=== PATIENT | male | born 1990 | race Caucasian/White ===

== ENCOUNTER 2017-05-03 15:48 | Emergency (ER) | payer OTHER ==
[2017-05-03 16:21] VITALS: RESP 18; O2SAT 100
[2017-05-03] MEDS ORDERED: DiphenhydrAMINE 50 mg/ml Inj IVP STA (16:59)
[2017-05-03] MEDS ORDERED: Sodium Chloride 0.9% 1,000 ML IV ONE (17:00)
--- NOTE | 2017-05-03 17:02 | C.PDOC ---
History Of Present Illness Patient reports 6 day history of fever which is associated with bodyaches, headache, cough, and sore throat. Patient reports that headache has gradually worsened and is associated with photophobia and facial pressure. Denies neck pain/stiffness, nausea, vomiting, diarrhea, rash, travel. Time Seen by Provider: 05/03/17 16:25 Chief Complaint (Nursing): Flu-like Symptoms Past Medical History Vital Signs: Last Vital Signs Temp 98 F 05/03/17 19:16 Pulse 57 L 05/03/17 19:16 Resp 18 05/03/17 19:16 BP 111/57 L 05/03/17 19:16 Pulse Ox 100 05/05/17 18:11 - Medical History PMH: Asthma Family History: States: Unknown Family Hx - Social History Hx Tobacco Use: Yes Hx Alcohol Use: No Hx Substance Use: No - Immunization History Hx Tetanus Toxoid Vaccination: No Hx Influenza Vaccination: Yes Hx Pneumococcal Vaccination: No Physical Exam - Physical Exam Appears: Non-toxic, No Acute Distress Skin: Normal Color, Warm, No Rash Head: Atraumatic, Normacephalic Eye(s): bilateral: Normal Inspection Ear(s): Bilateral: Normal Oral Mucosa: Moist Throat: Erythema (mild), No Exudate Neck: Normal ROM, Supple Chest: Symmetrical Cardiovascular: Rhythm Regular, No Friction Rub, No Murmur Respiratory: Normal Breath Sounds, No Rales, No Rhonchi, No Wheezing Gastrointestinal/Abdominal: Normal Exam, Soft, No Tenderness Back: Normal Inspection, No CVA Tenderness Extremity: Normal ROM, No Swelling Neurological/Psych: Oriented x3, Normal Speech, Normal Cranial Nerves, Normal Motor Gait: Steady ED Course And Treatment - Laboratory Results Result Diagrams: 05/03/17 17:33 05/03/17 17:33 O2 Sat by Pulse Oximetry: 100 (on RA) Pulse Ox Interpretation: Normal Disposition - Disposition Referrals: [facility] [Outside] Disposition: HOME/ ROUTINE Disposition Time: 19:06 Condition: GOOD Additional Instructions: Follow up with the medical doctor with 1-2 days. return if worsened. Prescriptions: Fluticasone Nasal [Flonase] 1 spr NS DAILY #1 spr Loratadine [Claritin] 10 mg PO DAILY #10 tab Metoclopramide [Reglan] 1 tab PO TID PRN #25 tab PRN Reason: Nausea/Vomiting Instructions: Migraine Headache (DC) Forms: [employer] ([place]) - Clinical Impression Clinical Impression: Migraine, Sinusitis
[2017-05-03] MEDS ORDERED: Sodium Chloride 0.9% 1,000 ML ONE (17:24)
[2017-05-03 17:44] LABS: BASO % 0.3 % (0.0-2.0); EOS # 0.4 K/uL (0.0-0.7); EOS % 6.4 % (0.0-4.0); LYMPH # 2.9 K/uL (1.0-4.3); MEAN CELL VOLUME 85.6 fL (80.0-94.0); MEAN CORPUSCULAR HEMOGLOBIN 30.1 pg (27.0-31.0); MEAN CORPUSCULAR HGB CONC 35.2 g/dL (33.0-37.0); MEAN PLATELET VOLUME 8.2 fL (7.2-11.7); MONO # 0.5 K/uL (0.0-0.8); MONO % 8.7 % (0.0-10.0); NEUT # 1.8 K/uL (1.8-7.0); NEUT % 32.6 % (50.0-75.0); NRBC % 0.1 % (0.0-2.0); RBC 4.99 Mil/uL (4.40-5.90); RED CELL DISTRIBUTION WIDTH 12.8 % (11.5-14.5); WHITE BLOOD COUNT 5.6 K/uL (4.8-10.8)
[2017-05-03 17:50] LABS: ALB/GLOB RATIO 1.2 (1.0-2.1); ALBUMIN 3.9 g/dL (3.5-5.0); ALT/SGPT 75 U/L (21-72); AST/SGOT 58 U/L (17-59); BLOOD UREA NITROGEN 7 mg/dL (9-20); GFR AFRICAN-AMERICAN > 60; GFR NON-AFRICAN AMERICAN > 60
[2017-05-03] MEDS ORDERED: DiphenhydrAMINE 50 mg/ml Inj ONE (18:11)
[2017-05-03 19:17] VITALS: BP 111/57; PULSE 57; TEMP 98
--- NOTE | 2017-05-04 08:37 | RAD ---
Chest x-ray two views History: Cough and fever. Comparison: None available. Findings: No focal infiltrate or effusion. Heart size within normal limits. Impression: No focal infiltrate or effusion.
== END 2017-05-03 19:16 | disposition home or self-care (01) ==
LOC: C.ER 15:48
DX: J32.9 Chronic sinusitis, unspecified (principal); G43.909 Migraine, unspecified, not intractable, without status migrainosus; Z72.0 Tobacco use
CPT/HCPCS: 71046; 80053; 85025; 96361; 96374; 96375; 99284; J1200; J1885; J2765; J7040

== ENCOUNTER 2018-03-25 10:49 | Outpatient (CLI) | payer OTHER | END 2018-03-25 10:50 | disposition home or self-care (01) | LOC: C.RADIC 10:49 | DX: J32.0 Chronic maxillary sinusitis (principal) ==

== ENCOUNTER 2018-04-13 06:41 | Day surgery (SDC) | payer OTHER ==
[2018-03-24 12:54] VITALS: BMI 34.8
[2018-04-13] MEDS ORDERED: Dextrose 5%/0.45% NS 1,000 ML IV SCH (08:15)
[2018-04-13] MEDS ORDERED: Acetaminophen-Codeine 300/30 mg Tab PO PRN (08:15)
[2018-04-13] MEDS ORDERED: EPINEPHrine 1:1000 Nasal Sol(30mL) ONE (08:21)
[2018-04-13] MEDS ORDERED: ceFAZolin 1 gm in NS 2 GM/200 ML BAG IVPB ONE (08:21)
[2018-04-13] MEDS ORDERED: Rocuronium 10 mg/ml (5 ml) ONE (08:40)
[2018-04-13] MEDS ORDERED: Succinylcholine Chloride 20 mg/ml Syr (5 ml) IV ONE (08:40)
[2018-04-13] MEDS ORDERED: Propofol 10 mg/ml Inj (20 ML) ONE ×3 (08:40→10:35)
[2018-04-13] MEDS: Lidocaine/Epinephrine 1% 1:100000 10 ML IJ ONE ×2 (09:05→09:34)
[2018-04-13] MEDS ORDERED: Neostigmine 1:1000 (1 mg/ml) Inj ONE (10:24)
[2018-04-13] MEDS ORDERED: Lactated Ringer's 1,000 ML IV ONE (10:36)
[2018-04-13] MEDS: HYDROmorphone 0.5 mg/0.5 ml ISec IVP PRN ×2 (11:05→11:20)
[2018-04-13] MEDS ORDERED: Midazolam 2 MG/2 ML VIAL IVP ONE (11:15)
[2018-04-13 13:25] VITALS: BP 122/50; PULSE 53; RESP 18; TEMP 98; O2SAT 100
--- NOTE | 2018-04-13 14:35 | OP ---
PROCEDURE DATE: 04/13/2018 PREOPERATIVE DIAGNOSES: Deviated septum, large turbinates, sinusitis. POSTOPERATIVE DIAGNOSES: Deviated septum, large turbinates, sinusitis. PROCEDURES: Endoscopic bilateral maxillary antrostomy, endoscopic bilateral ethmoidectomy, endoscopic bilateral frontal sinusotomy, endoscopic bilateral sphenoidotomy, endoscopic bilateral inferior turbinate reduction, septoplasty. SIGNIFICANT FINDINGS: Deviated septum, large turbinates, maxillary antrum stenosed on both sides, sphenoid antrum stenosed on both sides, frontal recess stenosed on both sides, sinusitis changes noted in the ethmoid sinuses, large turbinates. DESCRIPTION OF PROCEDURE: The patient was brought into room, placed in supine position, anesthesia initiated through an ET tube. The patient was draped in usual manner. Navigation was throughout the case in order to make sure the skull base and orbit were not entered. Adrenaline-soaked pledgets were inserted into nasal cavity, remained there for 5 minutes and removed. The septum was injected on both sides with lidocaine with epinephrine. A Martín incision was made on the left septum and mucoperichondrial flap was raised. A vertical incision was made in the cartilage leaving 1-1/2 cm anterior and superior strut and mucoperichondrial flap was raised on the other side. Deviated portion of the cartilage and bone were removed using forceps and chisel. A quilting suture was used to suture the two flaps together and close the Martín incision. A 0-degree scope was inserted into nasal cavity. Scissors were used to reduce the inferior turbinates on both sides, going from an inferior to superior, anterior posterior direction on both sides, first on the left and then on the right. Bleeding was controlled using suction cautery. Next, the middle turbinates were injected on both sides with lidocaine with epinephrine and medialized. Attention was turned to the left. The uncinate process was medialized using a [place] elevator and removed using forceps. A debrider was used to enter the ethmoid bulla inferomedially going posteriorly to the basal lamella anteriorly and superiorly until the ethmoid bulla was removed. The basal lamella was entered. Posterior ethmoid cells were entered and opened. Skull base was identified and followed anteriorly all the way to the area of the anterior ethmoid air cells. Rongeurs were used to remove a portion of the takeoff of the middle turbinates. The sphenoid recess was noted to be stenosed and opened using forceps. Curved suction hooked up to navigation was used to locate the maxillary antrum which was noted to be stenosed and opened using forceps. The sphenoid antrum was noted to be stenosed and opened using forceps. Bleeding was controlled using suction cautery and adrenaline-soaked pledgets. Attention was turned to the other side and middle turbinate was medialized. Uncinate process was medialized and removed. The ethmoid bulla was entered using a debrider inferomedially going posteriorly to the basal lamella anterior and superiorly until the ethmoid bulla was removed. The basal lamella was entered. Posterior ethmoid cells were entered and opened. Skull base was identified and followed anteriorly all the way to the area of anterior ethmoid air cells. Rongeur was used to reduce the size of the takeoff of the middle turbinate and the frontal recess was noted to be stenosed and opened using forceps. Curved suction hooked up to navigation was used to locate the maxillary antrum which was noted to be stenosed and opened using forceps. Sphenoid antrum was noted to be stenosed and opened using forceps. Maxillary antrum was located using curved suction hooked up to navigation and opened using forceps. Bleeding was controlled using suction cautery and adrenaline-soaked pledgets. Stents were placed. Splints were placed. The patient was taken off anesthesia and taken to recovery room in stable manner. Marcelo Carty MD
== END 2018-04-13 14:00 | disposition home or self-care (01) ==
LOC: C.SDS 06:41
PROVIDERS: ATTEND Otolaryngology
DX: J34.2 Deviated nasal septum (principal); J34.3 Hypertrophy of nasal turbinates; J32.0 Chronic maxillary sinusitis
CPT/HCPCS: 30520; 31254; 31276; 88304; J0690; J1100; J1170; J2250; J2405; J2704; J2710; J3010; J7120